=== PATIENT | male | born 1975 | race Caucasian/White ===

== ENCOUNTER 2016-11-10 23:16 | Emergency (ER) | payer SELFPAY ==
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
[2016-11-11 01:09] VITALS: BP 110/78
--- NOTE | 2016-11-11 01:23 | RADIOLOGY REPORT (SQ) ---
EXAM DESCRIPTION: SHOULDER RIGHT 2 OR MORE VIEWS COMPLETED DATE/TIME: 11/11/2016 12:34 am REASON FOR STUDY: SHOULDER PAIN COMPARISON: 10/11/2015. NUMBER OF VIEWS: Three views. TECHNIQUE: Internal rotation, external rotation, and Y view images acquired of the right shoulder. LIMITATIONS: None. FINDINGS: MINERALIZATION: Normal. BONES: No acute fracture or dislocation. No worrisome bone lesions. JOINTS: Inferior dislocation of the right acromioclavicular joint by approximately 2 shafts with thi s, chronic fragmented osteophyte associated with the distal clavicle, stable. VISUALIZED LUNGS AND RIBS: No pneumothorax. No rib fracture. SOFT TISSUES: No radiopaque foreign body. OTHER: No other significant finding. IMPRESSION: NO RADIOGRAPHIC EVIDENCE OF ACUTE INJURY. Chronic right acromioclavicular separation. TECHNICAL DOCUMENTATION: JOB ID: [id number] [employer]- All Rights Reserved
== END 2016-11-11 01:09 | disposition home or self-care (01) ==
LOC: ER 23:16
DX: K08.89 Other specified disorders of teeth and supporting structures (principal); M24.411 Recurrent dislocation, right shoulder; M25.511 Pain in right shoulder; I10 Essential (primary) hypertension
CPT/HCPCS: 99284

== ENCOUNTER 2016-11-17 22:19 | Emergency (ER) | payer OTHER ==
--- NOTE | 2016-11-17 23:06 | RADIOLOGY REPORT (SQ) ---
EXAM DESCRIPTION: SHOULDER RIGHT 2 OR MORE VIEWS COMPLETED DATE/TIME: 11/17/2016 10:54 pm REASON FOR STUDY: injury COMPARISON: 11/11/2016 NUMBER OF VIEWS: Three views. TECHNIQUE: Internal rotation, external rotation, and Y view images acquired of the right shoulder. LIMITATIONS: None. FINDINGS: MINERALIZATION: Normal. BONES: There is no acute fracture dislocation. There is chronic AC and coracoclavicular separation. JOINTS: No dislocation. VISUALIZED LUNGS AND RIBS: No pneumothorax. No rib fracture. SOFT TISSUES: No radiopaque foreign body. OTHER: No other significant finding. IMPRESSION: Chronic changes in the right shoulder. No acute findings. TECHNICAL DOCUMENTATION: JOB ID: [id number] [employer]- All Rights Reserved
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
[2016-11-18] MEDS ORDERED: IBUPROFEN 600 MG TABLET PO ONE
[2016-11-18 00:11] VITALS: BP 137/92
== END 2016-11-18 00:11 | disposition home or self-care (01) ==
LOC: ER 22:19
DX: S46.911A Strain of unspecified muscle, fascia and tendon at shoulder and upper arm level, right arm, initial encounter (principal); X58.XXXA Exposure to other specified factors, initial encounter; I10 Essential (primary) hypertension
CPT/HCPCS: 99283

== ENCOUNTER 2016-12-14 17:14 | Emergency (ER) | payer OTHER ==
[2016-12-14 17:27] VITALS: BP 133/93
--- NOTE | 2016-12-14 17:53 | ER Document Report ---
ED General - General Chief Complaint: Shoulder Pain Stated Complaint: RIGHT SHOULDER DISLOCATION Time Seen by Provider: 12/14/16 17:27 Mode of Arrival: Ambulatory Information source: Patient, Emergency Med Personnel, [facility] Records Notes: 41-year-old male presents from care home with concerns of right clavicular pain and shoulder pain. Patient denies any trauma notes it was reduced recently but feels like the shoulder is back out. TRAVEL OUTSIDE OF THE [place] IN LAST 30 DAYS: No - HPI Onset: Just prior to arrival Onset/Duration: Sudden Quality of pain: Achy Severity: Mild Pain Level: 1 Associated symptoms: Body/muscle aches Exacerbated by: Movement Relieved by: Denies Similar symptoms previously: Yes Recently seen / treated by doctor: Yes - Related Data Allergies/Adverse Reactions: No Known Allergies Allergy (Verified 10/11/14 17:29) Past Medical History - Social History Smoking Status: Never Smoker Cigarette use (# per day): No Chew tobacco use (# tins/day): No Smoking Education Provided: No Family History: None - Past Medical History Cardiac Medical History: Reports: Hx Hypertension Pulmonary Medical History: Reports: Hx Bronchitis Renal/ Medical History: Denies: Hx Peritoneal Dialysis Past Surgical History: Reports: Hx Orthopedic Surgery - R hand and forearm surgery for fx. - Immunizations Hx Diphtheria, Pertussis, Tetanus Vaccination: Yes Review of Systems - Review of Systems Notes: REVIEW OF SYSTEMS: CONSTITUTIONAL : Denies fever, chills, or sweats. Denies recent illness. EENT: Denies eye, ear, throat, or mouth pain or symptoms. Denies nasal or sinus congestion or discharge. Denies throat, tongue, or mouth swelling or difficulty swallowing. CARDIOVASCULAR: Denies chest pain. Denies palpitations or racing or irregular heart beat. Denies ankle edema. RESPIRATORY: Denies cough, cold, or chest congestion. Denies shortness of breath, difficulty breathing, or wheezing. GASTROINTESTINAL: Denies abdominal pain or distention. Denies nausea, vomiting , or diarrhea. Denies blood in vomitus, stools, or per rectum. Denies black, tarry stools. Denies constipation. GENITOURINARY: Denies difficulty urinating, painful urination, burning, frequency, blood in urine, or discharge. MUSCULOSKELETAL: Right clavicular pain shoulder pain SKIN: Denies rash, lesions or sores. HEMATOLOGIC : Denies easy bruising or bleeding. LYMPHATIC: Denies swollen, enlarged glands. NEUROLOGICAL: Denies confusion or altered mental status. Denies passing out or loss of consciousness. Denies dizziness or lightheadedness. Denies headache. Denies weakness or paralysis or loss of use of either side. Denies problems with gait or speech. Denies sensory loss, numbness, or tingling. Denies seizures. PSYCHIATRIC: Denies anxiety or stress. Denies depression, suicidal ideation, or homicidal ideation. ALL OTHER SYSTEMS REVIEWED AND NEGATIVE. Dictation was performed using [employer] voice recognition software PHYSICAL EXAMINATION: GENERAL: Well-appearing, well-nourished and in no acute distress. HEAD: Atraumatic, normocephalic. EYES: Pupils equal round and reactive to light, extraocular movements intact, sclera anicteric, conjunctiva are normal. ENT: Nares patent, oropharynx clear without exudates. Moist mucous membranes. NECK: Normal range of motion, supple without lymphadenopathy LUNGS: Breath sounds clear to auscultation bilaterally and equal. No wheezes rales or rhonchi. HEART: Regular rate and rhythm without murmurs ABDOMEN: Soft, nontender, nondistended abdomen. No guarding, no rebound. No masses appreciated. Musculoskeletal: Normal range of motion, no pitting or edema. No cyanosis. There is no tenting of the clavicle NEUROLOGICAL: Cranial nerves grossly intact. Normal speech, normal gait. Normal sensory, motor exams PSYCH: Normal mood, normal affect. SKIN: Warm, Dry, normal turgor, no rashes or lesions noted. Physical Exam - Vital signs Vitals: Temp Pulse Resp BP Pulse Ox 98.0 F 67 16 133/93 H 98 12/14/16 17:23 12/14/16 17:23 12/14/16 17:23 12/14/16 17:23 12/14/16 17:23 Course - Re-evaluation Re-evalutation: 12/14/16 18:14 X-ray from today notes a chronic clavicular separation, the shoulder itself looks fine I reviewed previous x-ray from approximately 1 month ago which had similar findings. Patient otherwise has no other complaints and will be discharged back [facility] After performing a Medical Screening Examination, I estimate there is LOW risk for INTRACRANIAL HEMORRHAGE, UNSTABLE SPINE FRACTURE, CENTRAL CORD SYNDROME, CAUDA EQUINA, THORACIC AORTIC DISSECTION, PNEUMOTHORAX, PERFORATED BOWEL, RUPTURED ABDOMINAL AORTIC ANEURYSM, ACUTE TENDON RUPTURE, COMPARTMENT SYNDROME, or OPEN FRACTURE, thus I consider the discharge disposition reasonable. Also, there is no evidence or peritonitis, sepsis, or toxicity. I have reevaluated this patient multiple times and no significant life threatening changes are noted. The patient and I have discussed the diagnosis and risks, and we agree with discharging home to follow-up with their primary doctor with the understanding that symptoms and presentations can change. We also discussed returning to the Emergency Department immediately if new or worsening symptoms occur. We have discussed the symptoms which are most concerning (e.g., bloody stool, fever, changing or worsening pain, vomiting) that necessitate immediate return. - Vital Signs Vital signs: Temp Pulse Resp BP Pulse Ox 98.0 F 67 16 133/93 H 98 12/14/16 17:23 12/14/16 17:23 12/14/16 17:23 12/14/16 17:23 12/14/16 17:23 - Diagnostic Test Radiology reviewed: Image reviewed, Reports reviewed - no acute abnormality Discharge - Discharge Clinical Impression: Pain of right clavicle, History of dislocation of shoulder Condition: Stable Disposition: HOME, SELF-CARE Additional Instructions: Follow up with your physician tomorrow for further care or return to the ED IMMEDIATELY if symptoms worsen or new concerns occur. If you cannot afford to follow up with your primary care physician a list of low cost clinics have been provided at the end of your discharge papers as well.
--- NOTE | 2016-12-14 18:04 | RADIOLOGY REPORT (SQ) ---
EXAM DESCRIPTION: SHOULDER RIGHT 2 OR MORE VIEWS COMPLETED DATE/TIME: 12/14/2016 5:40 pm REASON FOR STUDY: dislocation COMPARISON: 11/17/2016 NUMBER OF VIEWS: Two views. TECHNIQUE: Frontal and lateral images acquired of the right shoulder. LIMITATIONS: None. FINDINGS: MINERALIZATION: Normal. BONES: No acute fracture or dislocation. Similar appearance of the chronic AC dislocation. No worri some bone lesions. JOINTS: No dislocation. VISUALIZED LUNGS AND RIBS: No pneumothorax. No rib fracture. SOFT TISSUES: No radiopaque foreign body. OTHER: No other significant finding. IMPRESSION: NO RADIOGRAPHIC EVIDENCE OF ACUTE INJURY.Similar appearance of the chronic AC dislocatio n. TECHNICAL DOCUMENTATION: JOB ID: [id number] [employer]- All Rights Reserved
== END 2016-12-14 18:20 | disposition home or self-care (01) ==
LOC: ER 17:14
DX: M24.411 Recurrent dislocation, right shoulder (principal); M89.8X1 Other specified disorders of bone, shoulder; M25.511 Pain in right shoulder; Z98.890 Other specified postprocedural states; I10 Essential (primary) hypertension
CPT/HCPCS: 99283

== ENCOUNTER 2017-09-07 16:16 | Emergency (ER) | payer SELFPAY ==
[2017-09-07] MEDS ORDERED: ONDANSETRON 4 MG TAB.RAPDIS PO ONE (16:40)
[2017-09-07] MEDS ORDERED: FENTANYL CITRATE INJ/PF 100 MCG/2 ML AMPUL IM ONE (16:40)
[2017-09-07] MEDS ORDERED: KETOROLAC TROMETHAMINE 60 MG/2 ML SDV IM ONE (16:40)
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
--- NOTE | 2017-09-07 17:15 | RADIOLOGY REPORT (SQ) ---
EXAM DESCRIPTION: SHOULDER RIGHT 2 OR MORE VIEWS COMPLETED DATE/TIME: 09/07/2017 5:07 pm REASON FOR STUDY: Right shoulder injury COMPARISON: 12/14/2016. NUMBER OF VIEWS: Three views. TECHNIQUE: Internal rotation, external rotation, and Y view images acquired of the right shoulder. LIMITATIONS: None. FINDINGS: MINERALIZATION: Normal. BONES: No acute fracture or dislocation. No worrisome bone lesions. JOINTS: No acute dislocation. There is chronic separation of the acromioclavicular joint. VISUALIZED LUNGS AND RIBS: No pneumothorax. No rib fracture. SOFT TISSUES: No radiopaque foreign body. OTHER: No other significant finding. IMPRESSION: CHRONIC SEPARATION OF THE ACROMIOCLAVICULAR JOINT. NO ACUTE FINDINGS. TECHNICAL DOCUMENTATION: JOB ID: [id number] [employer]- All Rights Reserved Reading location - IP/workstation name: [email or web address]
[2017-09-07 18:31] VITALS: BP 155/98
== END 2017-09-07 18:31 | disposition home or self-care (01) ==
LOC: ER 16:16
DX: G89.4 Chronic pain syndrome (principal); M24.411 Recurrent dislocation, right shoulder; I10 Essential (primary) hypertension; F17.200 Nicotine dependence, unspecified, uncomplicated
CPT/HCPCS: 99283; 96372; 73030; J1885; S0119; J3010

== ENCOUNTER 2019-01-13 17:57 | Emergency (ER) | payer OTHER ==
[2019-01-13 18:03] VITALS: BP 145/92
--- NOTE | 2019-01-13 18:08 | ER Document Report ---
ED Medical Screen (RME) - General Chief Complaint: Shoulder Injury Stated Complaint: SHOULDER PAIN Time Seen by Provider: 01/13/19 18:06 Mode of Arrival: Ambulatory Information source: Law Enforcement Notes: Presented to ED for complaint of pain to the right shoulder. He states he went to get out of the bumps and somehow injured his right shoulder. He states he is in severe pain. Patient is alert oriented respirations regular and unlabored speaking in full sentences. 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 I have greeted and performed a rapid initial assessment of this patient. A comprehensive ED assessment and evaluation of the patient, analysis of test results and completion of medical decision making process will be conducted by an additional ED providers. TRAVEL OUTSIDE OF THE [place] IN LAST 30 DAYS: No - Related Data Allergies/Adverse Reactions: No Known Allergies Allergy (Verified 01/13/19 18:05) Past Medical History - Past Medical History Cardiac Medical History: Reports: Hx Hypertension Pulmonary Medical History: Reports: Hx Bronchitis Renal/ Medical History: Denies: Hx Peritoneal Dialysis Past Surgical History: Reports: Hx Orthopedic Surgery - R hand and forearm surgery for fx. - Immunizations Hx Diphtheria, Pertussis, Tetanus Vaccination: Yes Physical Exam - Vital signs Vitals: Temp Pulse Resp BP Pulse Ox 98.4 F 85 20 145/92 H 98 01/13/19 18:01 01/13/19 18:01 01/13/19 18:01 01/13/19 18:01 01/13/19 18:01 Course - Vital Signs Vital signs: Temp Pulse Resp BP Pulse Ox 98.4 F 85 20 145/92 H 98 01/13/19 18:01 01/13/19 18:01 01/13/19 18:01 01/13/19 18:01 01/13/19 18:01
[2019-01-13] MEDS ORDERED: KETOROLAC TROMETHAMINE 60 MG/2 ML SDV IM ONE (18:09)
--- NOTE | 2019-01-13 18:38 | RADIOLOGY REPORT (SQ) ---
EXAM DESCRIPTION: SHOULDER RIGHT 2 OR MORE VIEWS COMPLETED DATE/TIME: 01/13/2019 6:19 pm REASON FOR STUDY: pain possible dislocation COMPARISON: Right shoulder films 09/07/2017, 12/14/2016, 10/11/2015 NUMBER OF VIEWS: Three views. TECHNIQUE: Internal rotation, external rotation, and Y view images acquired of the right shoulder. LIMITATIONS: None. FINDINGS: MINERALIZATION: Normal. BONES: No acute fracture. No worrisome bone lesions. JOINTS: No glenohumeral malalignment. Chronic right acromioclavicular joint separation, with widenin g of the coracoclavicular interval, and bony spurring from old avulsion fragment off distal undersurf iraida of the right clavicle. These findings are similar compared to studies dating back to 2016. VISUALIZED LUNGS AND RIBS: No pneumothorax. No rib fracture. SOFT TISSUES: No radiopaque foreign body. OTHER: No other significant finding. IMPRESSION: Chronic right acromioclavicular joint separation. TECHNICAL DOCUMENTATION: JOB ID: [id number] [employer]- All Rights Reserved Reading location - IP/workstation name: [email or web address]
== END 2019-01-13 19:14 | disposition home or self-care (01) ==
LOC: ER 17:57
DX: S43.001A Unspecified subluxation of right shoulder joint, initial encounter (principal); M25.511 Pain in right shoulder; M25.411 Effusion, right shoulder; X58.XXXA Exposure to other specified factors, initial encounter; F17.210 Nicotine dependence, cigarettes, uncomplicated; I10 Essential (primary) hypertension
CPT/HCPCS: 99283; 96372; 73030; J1885

== ENCOUNTER 2019-04-04 21:13 | Emergency (ER) | payer SELFPAY ==
[2019-04-04] MEDS ORDERED: ONDANSETRON HCL INJ/PF 4 MG/2 ML SDV IV ONE (21:55)
[2019-04-04] MEDS ORDERED: NORMAL SALINE 1000 ML 1,000 ML IV ONE (21:55)
[2019-04-04] MEDS ORDERED: HYDROMORPHONE HCL INJ/PF 2 MG/ML AMPULE IV ONE (21:55)
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
[2019-04-04 22:05] LABS: ABSOLUTE MONOCYTES (AUTO) 0.8 10^3/uL (0.1-1.4); ABSOLUTE NEUT (AUTO) 7.9 10^3/uL (1.7-8.2); BASOPHILS % (AUTO) 0.2 % (0-2); EOSINOPHILS % (AUTO) 0.3 % (0-6); HEMATOCRIT 45.3 % (37.9-51.0); MEAN CORPUSCULAR HEMOGLOBIN 31.2 pg (27.0-33.4); MEAN CORPUSCULAR HGB CONC 35.3 g/dL (32.0-36.0); MEAN CORPUSCULAR VOLUME 88 fl (80-97); MONOCYTES % (AUTO) 7.2 % (3-13); PLATELET COUNT 296 10^3/uL (150-450); RED BLOOD COUNT 5.13 10^6/uL (4.35-5.55); RED CELL DISTRIBUTION WIDTH 14.2 % (11.5-14.0); SEGMENTED NEUTROPHILS % (AUTO) 73.3 % (42-78); TOTAL CELLS COUNTED % (AUTO) 100 %; WHITE BLOOD COUNT 10.7 10^3/uL (4.0-10.5)
[2019-04-04 22:13] LABS: ALBUMIN 4.1 g/dL (3.5-5.0); ALKALINE PHOSPHATASE 53 U/L (38-126); ANION GAP 9 (5-19); ASPARTATE AMINO TRANSFERASE 22 U/L (17-59); BILIRUBIN,DIRECT 0.2 mg/dL (0.0-0.4); BILIRUBIN,TOTAL 0.7 mg/dL (0.2-1.3); BLOOD UREA NITROGEN 11 mg/dL (7-20); CARBON DIOXIDE 25 mmol/L (22-30); CHLORIDE 104 mmol/L (98-107); GLUCOSE 99 mg/dL (75-110); POTASSIUM 3.8 mmol/L (3.6-5.0); TOTAL PROTEIN 7.5 g/dL (6.3-8.2)
--- NOTE | 2019-04-04 23:19 | RADIOLOGY REPORT (SQ) ---
CLINICAL HISTORY: severe RLQ pain COMPARISON: None. 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 FINDINGS: Lower lungs are clear. Abdomen: The liver is normal in appearance. There is no biliary dilatation. Gallbladder is normal in appearance. The pancreas and spleen are normal in appearance. The adrenal glands and kidneys are unremarkable. Abdominal aorta is normal in course and caliber without aneurysm. There is no free air. There is no retroperitoneal adenopathy. Pelvis: There is no bowel obstruction. Urinary bladder is unremarkable. There is no free fluid. Appendix is normal. Skeleton: There are no acute osseous findings. No suspicious bony lesions. IMPRESSION: No acute process.
[2019-04-04] MEDS ORDERED: KETOROLAC TROMETHAMINE INJ/PF 30 MG/1 ML SDV IV ONE (23:53)
[2019-04-05 00:38] VITALS: BP 141/92
== END 2019-04-05 00:40 | disposition home or self-care (01) ==
LOC: ER 21:13
DX: R10.31 Right lower quadrant pain (principal); F17.200 Nicotine dependence, unspecified, uncomplicated; I10 Essential (primary) hypertension; Z87.442 Personal history of urinary calculi
CPT/HCPCS: 99284; 96361; 96374; 96375; 36415; 85025; 80053; 74177; J1885; J1170; J2405; J7030